=== PATIENT | male | born 1990 | race Caucasian/White ===

== ENCOUNTER → 2020-05-02 14:26 | Outpatient (BNVA) | payer SELFPAY | PROVIDERS: Visit Provider Physician Assistant Medical | DX: Z76.89 Persons encountering health services in other specified circumstances (principal) ==

== ENCOUNTER 2021-06-23 12:22 | Outpatient (REF) | payer OTHER, SELFPAY ==
[2021-06-23 13:16] LABS: COVID-19 Test Positive (Negative)
== END 2021-06-23 12:23 | disposition home or self-care (01) ==
LOC: HO.LAB 12:22
PROVIDERS: Visit Provider Internal Medicine
DX: Z20.822 Contact with and (suspected) exposure to COVID-19 (principal)
CPT/HCPCS: 36415; 87635; C9803

== ENCOUNTER 2021-08-20 12:00 | Outpatient (RCR) | payer OTHER, SELFPAY | END 2021-08-20 13:59 | disposition home or self-care (01) | LOC: HO.PT 12:00 | PROVIDERS: Visit Provider Physician Assistant | DX: Z98.890 Other specified postprocedural states (principal) | CPT/HCPCS: 97014; 97110; 97140; 97161; 97530 ==

== ENCOUNTER 2022-03-02 12:55 | Outpatient (RCR) | payer OTHER, SELFPAY ==
[2022-03-02 13:00] VITALS: BP 128/68; PULSE 73; O2SAT 97
== END 2022-04-07 14:43 | disposition home or self-care (01) ==
LOC: HO.PTWFD 12:55
PROVIDERS: Visit Provider Physician Assistant
DX: S16.1XXA Strain of muscle, fascia and tendon at neck level, initial encounter (principal)
CPT/HCPCS: 97110; 97162; 97535

== ENCOUNTER 2022-03-09 13:54 | Outpatient (REF) | payer OTHER, SELFPAY ==
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
== END 2022-03-09 13:55 | disposition home or self-care (01) ==
LOC: HO.HMGCX 13:54
PROVIDERS: Visit Provider Physician Assistant
DX: S81.812A Laceration without foreign body, left lower leg, initial encounter (principal)
CPT/HCPCS: 73590

== ENCOUNTER → 2022-04-24 07:56 | Outpatient (BNVA) | payer SELFPAY | PROVIDERS: Visit Provider Internal Medicine | DX: Z02.79 Encounter for issue of other medical certificate (principal) ==

== ENCOUNTER 2022-06-05 16:35 | Emergency (ER) | payer OTHER, SELFPAY ==
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
[2022-06-05 17:24] VITALS: BP 126/66; PULSE 95; RESP 18; TEMP 36.9; O2SAT 97; BMI 39.2
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
[2022-06-05 20:09] VITALS: BP 122/68; PULSE 62; RESP 12; TEMP 36.8; O2SAT 98
[2022-06-05] MEDS: Cyclobenzaprine HCl 5 MG TABLET PO (20:37)
--- NOTE | 2022-06-05 20:40 | PC.NURSE ---
patient a&ox3, pt medicated for pain, ambulated with steady gait and will discharge per order
== END 2022-06-05 20:41 | disposition home or self-care (01) ==
PROVIDERS: Emergency Provider Student in an Organized Health Care Education/Training Program
DX: R51.9 Headache, unspecified (principal); M54.2 Cervicalgia; M25.562 Pain in left knee; M25.561 Pain in right knee; Z79.899 Other long term (current) drug therapy
CPT/HCPCS: 70450; 72125; 73564; 99284

== ENCOUNTER 2022-07-17 04:25 | Emergency (ER) | payer OTHER, SELFPAY ==
[2022-07-17 04:57] VITALS: BP 134/91; PULSE 97; RESP 18; TEMP 36.7; O2SAT 97; BMI 38.7
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
[2022-07-17] MEDS: Ketorolac Tromethamine 15 MG/ML VIAL IM (08:54)
[2022-07-17] MEDS: Diphth,Pertus(ACell),Tet Adult 0.5 ML SYRINGE IM (08:56)
[2022-07-17 09:06] VITALS: BP 127/82; PULSE 93; RESP 16; TEMP 36.7; O2SAT 100
== END 2022-07-17 09:12 | disposition home or self-care (01) ==
PROVIDERS: Emergency Provider Student in an Organized Health Care Education/Training Program
DX: S60.511A Abrasion of right hand, initial encounter (principal); T23.201A Burn of second degree of right hand, unspecified site, initial encounter; T31.0 Burns involving less than 10% of body surface; T15.02XA Foreign body in cornea, left eye, initial encounter; X08.8XXA Exposure to other specified smoke, fire and flames, initial encounter; Y93.9 Activity, unspecified; Y92.9 Unspecified place or not applicable; Y99.9 Unspecified external cause status; Z79.899 Other long term (current) drug therapy
CPT/HCPCS: 16025; 90471; 90715; 96372; 99284; J1885

== ENCOUNTER 2022-08-19 08:30 | Outpatient (RCR) | payer OTHER, SELFPAY | END 2022-09-17 10:46 | disposition home or self-care (01) | LOC: HO.OT 08:30 | PROVIDERS: Visit Provider Surgery | DX: T23.001D Burn of unspecified degree of right hand, unspecified site, subsequent encounter (principal) | CPT/HCPCS: 97110; 97140; 97166 ==

== ENCOUNTER 2022-09-21 15:26 | Emergency (ER) | payer OTHER, SELFPAY ==
[2022-09-21 15:57] VITALS: BP 148/116; PULSE 93; RESP 18; TEMP 36.8; O2SAT 100; BMI 38.7
--- NOTE | 2022-09-21 15:58 | ED.EXTPRO ---
HPI - Extremity Problem General Chief complaint: Extremity Problem <RANDOLPH Robles - Last Filed: 09/21/22 16:03> Stated complaint: right knee surgery 09/18 sent from [facility] clot <RANDOLPH Robles - Last Filed: 09/21/22 16:03> Time Seen by Provider: 09/21/22 16:10 <RANDOLPH Robles - Last Filed: 09/21/22 16:03> Source: patient <Ryan Catalan MD - Last Filed: 09/21/22 17:51> Mode of arrival: ambulatory <Ryan Catalan MD - Last Filed: 09/21/22 17:51> Limitations: no limitations <Ryan Catalan MD - Last Filed: 09/21/22 17:51> History of Present Illness HPI Narrative: 32-year-old male with no major medical problems presents with right lower extremity pain. Patient had a recent ACL repair done a [facility]. He has had having increasing right lower extremity pain to the point it was so severe that he ran out of his pain medications. He followed up with his orthopedist ordered ultrasound was found to have a DVT. Again the pain is severe. His right knee. Pain radiates proximally and distally. There is no numbness or tingling. There has been no new injuries. He denies any chest pain or shortness of breath. He oxycodone did improve his pain however had to double up on the pain medications every 3 hours. He has had no fevers or chills. No other significant complaints at this time. <Ryan Catalan MD - Last Filed: 09/21/22 17:51> Related Data Home medications: Previous Rx's Medication Instructions Recorded cyclobenzaprine 5 mg tablet 5 mg PO TID PRN pain 7 days #21 06/05/22 tabs ketorolac 10 mg tablet 10 mg PO Q6H PRN pain 5 days #20 07/17/22 tabs apixaban 5 mg tablet (Eliquis) 10 mg PO BID 7 days #28 tabs 09/21/22 docusate sodium 100 mg capsule 100 mg PO BID #20 caps 09/21/22 (Colace) oxycodone 10 mg tablet 10 mg PO Q8H PRN pain #7 tabs 09/21/22 <RANDOLPH Robles - Last Filed: 09/21/22 16:03> Allergies/Adverse reactions: Allergies Allergy/AdvReac Type Severity Reaction Status Date / Time acetaminophen [From Tylenol] Allergy Rash Verified 07/17/22 08:28 From Vicodin AdvReac Mild HEAT Uncoded 03/09/22 13:45 FLASHES <RANDOLPH Robles - Last Filed: 09/21/22 16:03> Review of Systems Review of Systems: CONSTITUTIONAL: Denies weight loss, fever and chills. HEENT: Denies changes in vision and hearing. RESPIRATORY: Denies SOB and cough. CV: Denies palpitations no CP. GI: Denies abdominal pain, nausea, vomiting and diarrhea. : Denies dysuria and urinary frequency. MSK: Positive myalgia and joint pain. SKIN: Denies rash and pruritus. NEUROLOGICAL: Denies headache and syncope. PSYCHIATRIC: Denies recent changes in mood. Denies anxiety and depression. All other ROS are negative unless in HPI <Ryan Catalan MD - Last Filed: 09/21/22 17:51> [facility] Social History Social History: Social History Advance Directives: No Advance Directives Information Provided: Yes <RANDOLPH Robles - Last Filed: 09/21/22 16:03> Physical Exam Vital Signs: Vital Signs: Last Vital Signs Temp 98.2 F 09/21/22 15:57 Pulse 93 09/21/22 15:57 Resp 18 09/21/22 15:57 BP 148/116 H 09/21/22 15:57 Pulse Ox 100 09/21/22 15:57 BMI result Body Mass Index 38.7 <RANDOLPH Robles - Last Filed: 09/21/22 16:03> Vital Signs: Last Vital Signs Temp 98.2 F 09/21/22 15:57 Pulse 93 09/21/22 15:57 Resp 18 09/21/22 15:57 BP 148/116 H 09/21/22 15:57 Pulse Ox 100 09/21/22 15:57 BMI result Body Mass Index 38.7 <Ryan Catalan MD - Last Filed: 09/21/22 17:51> GEN: Well developed, no acute distress, alert, oriented HEENT: Normocephalic, atraumatic, normal external ears, nose appears normal, no oropharyngeal edema or exudates Eyes: Normal to appearance Neck: Supple, no lymphadenopathy Respiratory: Talks in complete sentences, no respiratory distress, clear to auscultation bilaterally Cardiovascular: Regular rate and rhythm, no murmurs rubs or gallops Abdomen: Soft, nontender, nondistended, no guarding, no rebound Back: No CVA tenderness Extremities: No clubbing cyanosis positive for right lower extremity edema Neurologic: No focal neurologic deficits, cranial nerves 2-12 intact, strength is 5/5 bilaterally, gait normal Skin: No rash <Ryan Catalan MD - Last Filed: 09/21/22 17:51> Course Course Course Narrative: RME - 32 y/o male presents to the ER for evaluation of severe RLE pain and recently found DVT s/p ACL reconstruction on 09/18 by [facility]. Arrives with disc from radiology in [facility], reports clots from the knee down. Reports extreme pain in the RLE and was told to double up his prescribed narcotics and is now out of them. No SOB or chest pain. Plan: labs and start on anticoagulation <RANDOLPH Robles - Last Filed: 09/21/22 16:03> Reevaluation(s) Reevaluation #1: Will review disc provided by radiologist. Will contact patient's orthopedist to approve anticoagulation. <Ryan Catalan MD - Last Filed: 09/21/22 17:51> Reevaluation #2: I spoke with Dr. Khoury's MA, aware of DVT, Recommends Eliquis and short follow up. <Ryan Catalan MD - Last Filed: 09/21/22 17:51> Reevaluation #3: Workup is complete. Patient started Eliquis. I discussed concerns about blood thinning medications and the risks of falling, head injury, bleeding. I discussed melanotic stools. Patient will be discharged at this time. Also, the patient showed me a rash on the tip of his penis. Patient reports that responded to antifungals in the past with steroid as well. This has been going on for at least a year. <Ryan Catalan MD - Last Filed: 09/21/22 17:51> Time: 17:46 <Ryan Catalan MD - Last Filed: 09/21/22 17:51> Medications Administered Discontinued Medications Generic Name Dose Route Start Last Admin Trade Name Freq PRN Reason Stop Dose Admin Apixaban 10 mg 09/21/22 16:39 09/21/22 16:57 Apixaban 5 Mg Tablet PO 09/21/22 16:40 10 mg ONCE ONE Administration Oxycodone HCl 10 mg 09/21/22 16:04 09/21/22 16:57 Oxycodone Hcl Immed Release 5 Mg Tablet PO 09/21/22 16:05 10 mg ONCE ONE Administration <RANDOLPH Robles - Last Filed: 09/21/22 16:03> Medications Administered Discontinued Medications Generic Name Dose Route Start Last Admin Trade Name Freq PRN Reason Stop Dose Admin Apixaban 10 mg 09/21/22 16:39 09/21/22 16:57 Apixaban 5 Mg Tablet PO 09/21/22 16:40 10 mg ONCE ONE Administration Oxycodone HCl 10 mg 09/21/22 16:04 09/21/22 16:57 Oxycodone Hcl Immed Release 5 Mg Tablet PO 09/21/22 16:05 10 mg ONCE ONE Administration <Ryan Catalan MD - Last Filed: 09/21/22 17:51> Medical Decision Making Medical Decision Making MDM Narrative: 32-year-old male presents with the a likely DVT. This was diagnosed by now patient radiology group. Attempting to obtain these images at this time. Assuming this is positive for DVT, will contact patient's orthopedist to confirm appropriateness for anticoagulation. Doubt patient needs to have IVC filter in place. The etiology of the DVT is most likely due to his recent surgery and immobilization. Doubt underlying blood diathesis at this time <Ryan Catalan MD - Last Filed: 09/21/22 17:51> Differential Diagnosis Differential Diagnoses: The differential diagnosis associated with the presentation includes (DVT, hypercoagulable state, vascular injury) <Ryan Catalan MD - Last Filed: 09/21/22 17:51> DVT <Ryan Catalan MD - Last Filed: 09/21/22 17:51> Admission/Observation Consideration of admission/observation: Escalation of care including admission/observation considered <Ryan Catalan MD - Last Filed: 09/21/22 17:51> Consult Healthcare Provider Management of the patient was discussed with: Diversional Therapist'S Assistant (Orthopedist) <Ryan Catalan MD - Last Filed: 09/21/22 17:51> Lab Data MDM Lab Attestation statement: I reviewed the patient's lab results. <Ryan Cataaln MD - Last Filed: 09/21/22 17:51> Result Diagrams: 09/21/22 16:52 09/21/22 16:52 <RANDOLPH Robles - Last Filed: 09/21/22 16:03> Labs: Lab Results 09/21/22 09/21/22 09/21/22 Range/Units 16:52 16:52 16:52 WBC 11.3 H (4.8-10.8) X10*3/uL RBC 5.30 (4.60-5.80) X10*6/uL Hgb 15.3 (14.0-18.0) g/dl Hct 46.3 (42.0-52.0) % MCV 87.4 (80.0-98.0) fL MCH 28.9 (27.0-33.0) pg MCHC 33.0 (31.0-36.0) g/dl RDW 12.5 (11.0-16.0) % Plt Count 277 (160-400) X10*3/uL MPV 9.9 (9.4-12.4) fL Immature Gran % (Auto) 0.5 H (0.0-0.4) % Neut % (Auto) 67.1 (45-73) % Lymph % (Auto) 23.0 (20-40) % Lamar % (Auto) 8.1 (2-11) % Eos % (Auto) 0.8 (0-4) % Baso % (Auto) 0.5 (0-2) % Lymph # (Auto) 2.6 (1.2-4.9) X10*3/uL Lamar # (Auto) 0.9 (0.1-1.2) X10*3/uL Eos # (Auto) 0.1 (0.0-0.4) X10*3/uL Baso # (Auto) 0.1 (0.0-0.2) X10*3/uL Abs Immat Gran (auto) 0.06 H (0.00-0.03) X10*3/uL Absolute Neuts (auto) 7.6 (2.0-8.3) x10*3/uL Absolute Nucleated RBC 0.000 (0.0-0.012) X10*3/uL Nucleated RBC % (auto) 0.0 (0.0-0.2) /100WBC PT 11.6 (10.0-13.1) SEC INR 1.0 (0.9-1.1) APTT 29.3 (26.0-36.4) SEC Sodium 139 (135-145) mmol/L Potassium 4.3 (3.3-5.1) mmol/L Chloride 102 (96-108) mmol/L Carbon Dioxide 28 (22-29) mmol/L Anion Gap 13 (12-20) BUN 12 (9-16) mg/dL Creatinine 1.16 (0.5-1.4) mg/dL Estim Creat Clear Calc 138.2 Estimated GFR > 60 Random Glucose 103 (60-115) mg/dL Calcium 9.9 (8.4-10.2) mg/dL Magnesium 2.1 (1.6-2.6) mg/dL Total Bilirubin 1.1 H (0.0-1.0) mg/dL Direct Bilirubin 0.3 (0.0-0.5) mg/dL AST 22 (5-37) U/L ALT 34 (0-40) U/L Alkaline Phosphatase 81 (39-117) U/L Total Protein 7.7 (6.5-8.0) g/dL Albumin 4.6 (3.5-5.0) g/dL <RANDOLPH Robles - Last Filed: 09/21/22 16:03> Lab Results 09/21/22 09/21/22 09/21/22 Range/Units 16:52 16:52 16:52 WBC 11.3 H (4.8-10.8) X10*3/uL RBC 5.30 (4.60-5.80) X10*6/uL Hgb 15.3 (14.0-18.0) g/dl Hct 46.3 (42.0-52.0) % MCV 87.4 (80.0-98.0) fL MCH 28.9 (27.0-33.0) pg MCHC 33.0 (31.0-36.0) g/dl RDW 12.5 (11.0-16.0) % Plt Count 277 (160-400) X10*3/uL MPV 9.9 (9.4-12.4) fL Immature Gran % (Auto) 0.5 H (0.0-0.4) % Neut % (Auto) 67.1 (45-73) % Lymph % (Auto) 23.0 (20-40) % Lamar % (Auto) 8.1 (2-11) % Eos % (Auto) 0.8 (0-4) % Baso % (Auto) 0.5 (0-2) % Lymph # (Auto) 2.6 (1.2-4.9) X10*3/uL Lamar # (Auto) 0.9 (0.1-1.2) X10*3/uL Eos # (Auto) 0.1 (0.0-0.4) X10*3/uL Baso # (Auto) 0.1 (0.0-0.2) X10*3/uL Abs Immat Gran (auto) 0.06 H (0.00-0.03) X10*3/uL Absolute Neuts (auto) 7.6 (2.0-8.3) x10*3/uL Absolute Nucleated RBC 0.000 (0.0-0.012) X10*3/uL Nucleated RBC % (auto) 0.0 (0.0-0.2) /100WBC PT 11.6 (10.0-13.1) SEC INR 1.0 (0.9-1.1) APTT 29.3 (26.0-36.4) SEC Sodium 139 (135-145) mmol/L Potassium 4.3 (3.3-5.1) mmol/L Chloride 102 (96-108) mmol/L Carbon Dioxide 28 (22-29) mmol/L Anion Gap 13 (12-20) BUN 12 (9-16) mg/dL Creatinine 1.16 (0.5-1.4) mg/dL Estim Creat Clear Calc 138.2 Estimated GFR > 60 Random Glucose 103 (60-115) mg/dL Calcium 9.9 (8.4-10.2) mg/dL Magnesium 2.1 (1.6-2.6) mg/dL Total Bilirubin 1.1 H (0.0-1.0) mg/dL Direct Bilirubin 0.3 (0.0-0.5) mg/dL AST 22 (5-37) U/L ALT 34 (0-40) U/L Alkaline Phosphatase 81 (39-117) U/L Total Protein 7.7 (6.5-8.0) g/dL Albumin 4.6 (3.5-5.0) g/dL <Ryan Catalan MD - Last Filed: 09/21/22 17:51> Independent Interpretation I performed an independent interpretation of an: Ultrasound (Reviewed independently the images on ultrasound showing noncompressibility the venous system of the right lower extremity consistent with DVT) <Ryan Catalan MD - Last Filed: 09/21/22 17:51> Radiology Impression Discussion of test interpretation with radiology: I have reviewed the radiologist's reading. (Ultrasound right lower extremity to rule out DVT:) <Ryan Catalan MD - Last Filed: 09/21/22 17:51> External Record Review External record reviewed: Prior outpatient radiology <Ryan Catalan MD - Last Filed: 09/21/22 17:51> Tests considered The following testing was considered but not selected: Laboratory analysis <Ryan Catalan MD - Last Filed: 09/21/22 17:51> Prescription Management I considered prescription management with: Pain Medication <Ryan Catalan MD - Last Filed: 09/21/22 17:51> Discharge Plan Discharge Clinical Impression: Deep vein thrombosis of lower extremity <RANDOLPH Robles - Last Filed: 09/21/22 16:03> Patient Disposition: Home, Self-Care <RANDOLPH Robles - Last Filed: 09/21/22 16:03> Instructions: Deep Vein Thrombosis (ED), Blood Thinners (ED) <RANDOLPH Robles - Last Filed: 09/21/22 16:03> Additional Instructions: You will be started on blood thinning medications for the blood clot in your right leg. When you on these medications, there is increased risk of bleeding from minor injuries. Should you have minor injury to the head, I would recommend following up in the emergency department for evaluation as she will be at significantly increased risk for intracranial bleeding. <RANDOLPH Robles - Last Filed: 09/21/22 16:03> Prescriptions: New Eliquis 5 mg tablet 10 mg PO BID 7 Days Qty: 28 0RF docusate sodium [Colace] 100 mg capsule 100 mg PO BID Qty: 20 0RF oxycodone 10 mg tablet 10 mg PO Q8H PRN (Reason: pain) Qty: 7 0RF Rx Instructions: Partial Fill upon patient request. No Action cyclobenzaprine 5 mg tablet 5 mg PO TID PRN (Reason: pain) 7 Days Qty: 21 0RF ketorolac 10 mg tablet 10 mg PO Q6H PRN (Reason: pain) 5 Days Qty: 20 0RF Rx Instructions: Patient received Toradol in the emergency room. <RANDOLPH Robles - Last Filed: 09/21/22 16:03> Referrals: Kyle Khoury MD [Physician] - 2 days <RANDOLPH Robles - Last Filed: 09/21/22 16:03>
[2022-09-21] MEDS: Apixaban 5 MG TABLET 10 MG PO (16:57)
[2022-09-21] MEDS: oxyCODONE HCl Immed Release 5 MG TABLET 10 MG PO (16:57)
[2022-09-21 16:59] LABS: MANUAL DIFF FLAG NO
[2022-09-21 17:06] LABS: Basophils Absolute Auto 0.1 X10*3/uL (0.0-0.2); Basophils Percent Auto 0.5 % (0-2); Eosinophils Absolute Auto 0.1 X10*3/uL (0.0-0.4); Eosinophils Percent Auto 0.8 % (0-4); Hematocrit 46.3 % (42.0-52.0); Hemoglobin 15.3 g/dl (14.0-18.0); Imm Gran Abs Auto 0.06 X10*3/uL (0.00-0.03); Imm Gran Pct Auto 0.5 % (0.0-0.4); Lymphocytes Absolute Auto 2.6 X10*3/uL (1.2-4.9); Mean Corpuscular Hemoglobin 28.9 pg (27.0-33.0); Mean Corpuscular Volume 87.4 fL (80.0-98.0); Mean Platelet Volume 9.9 fL (9.4-12.4); Monocytes Absolute Auto 0.9 X10*3/uL (0.1-1.2); Monocytes Percent Auto 8.1 % (2-11); Neutrophils Absolute Auto 7.6 x10*3/uL (2.0-8.3); Neutrophils Percent Auto 67.1 % (45-73); Platelet Count 277 X10*3/uL (160-400); Red Cell Distribution Width 12.5 % (11.0-16.0); White Blood Count 11.3 X10*3/uL (4.8-10.8)
[2022-09-21 17:27] LABS: Prothrombin Time 11.6 SEC (10.0-13.1)
[2022-09-21 17:29] LABS: Partial Thromboplastin Time 29.3 SEC (26.0-36.4)
[2022-09-21 17:34] LABS: Alanine Aminotransferase 34 U/L (0-40); Albumin Level 4.6 g/dL (3.5-5.0); Alkaline Phosphatase 81 U/L (39-117); Anion Gap 13 (12-20); Aspartate Amino Transferase 22 U/L (5-37); Bilirubin Direct 0.3 mg/dL (0.0-0.5); Bilirubin Total 1.1 mg/dL (0.0-1.0); Blood Urea Nitrogen 12 mg/dL (9-16); Calcium 9.9 mg/dL (8.4-10.2); Carbon Dioxide 28 mmol/L (22-29); Chloride 102 mmol/L (96-108); Creatinine Clr Calc Pharmacy 138.2; Estimated Glomerular Filt Rate > 60; Glucose Random 103 mg/dL (60-115); Magnesium 2.1 mg/dL (1.6-2.6); Potassium 4.3 mmol/L (3.3-5.1); Sodium 139 mmol/L (135-145); Total Protein 7.7 g/dL (6.5-8.0)
== END 2022-09-21 18:02 | disposition home or self-care (01) ==
PROVIDERS: Physician Assistant; Emergency Provider Emergency Medicine
DX: I82.401 Acute embolism and thrombosis of unspecified deep veins of right lower extremity (principal); M79.661 Pain in right lower leg; R60.0 Localized edema; Z79.899 Other long term (current) drug therapy
CPT/HCPCS: 36415; 80048; 80076; 83735; 85025; 85610; 85730; 99283

== ENCOUNTER 2022-11-25 10:00 | Outpatient (RCR) | payer OTHER, SELFPAY ==
[2022-10-01 09:07] VITALS: BP 122/80; PULSE 90; O2SAT 97
== END 2023-09-03 09:26 | disposition home or self-care (01) ==
LOC: HO.PTWFD 10:00
PROVIDERS: PCP Internal Medicine; Visit Provider Orthopaedic Surgery
DX: S80.911A Unspecified superficial injury of right knee, initial encounter (principal)
CPT/HCPCS: 97110; 97116; 97150; 97163; 97530; 97535

== ENCOUNTER 2023-01-04 14:34 | Outpatient (REF) | payer OTHER, SELFPAY ==
--- NOTE | ~2023-01-04 | US_ITS ---
EXAMINATION: US VENOUS ULTRASOUND WITH DOPPLER LOWER EXTREMITY, RIGHT CLINICAL INFORMATION: Pain. Rule out DVT. COMPARISON: None available. TECHNIQUE: Ultrasound of the deep veins is performed from the hip to the calf with compression sonography and color and pulse Doppler assessment. Spectral analysis with color-flow imaging is performed. FINDINGS: There is normal venous compression and respiratory variation and augmented flow. The visualized common femoral vein, superficial femoral vein, profunda femoral vein, popliteal vein, and the trifurcation region shows no evidence of deep venous thrombosis. There is a large complex Roberson's cyst measuring 7.4 x 1.5 x 4.6 cm. US/US venous duplex LE RT IMPRESSION: No DVT demonstrated in the right lower extremity. Large complex Roberson's cyst.
== END 2023-01-04 14:35 | disposition home or self-care (01) ==
LOC: HO.US 14:34
PROVIDERS: PCP Internal Medicine; Visit Provider Internal Medicine
DX: I82.401 Acute embolism and thrombosis of unspecified deep veins of right lower extremity (principal)
CPT/HCPCS: 93971

== ENCOUNTER 2023-10-08 08:00 | Outpatient (RCR) | payer OTHER, SELFPAY | END 2023-10-15 08:21 | disposition home or self-care (01) | LOC: HO.PT 08:00 | PROVIDERS: Visit Provider Orthopaedic Surgery | DX: M25.561 Pain in right knee (principal) | CPT/HCPCS: 97110; 97161; 97530 ==

== ENCOUNTER → 2024-04-11 07:21 | Outpatient (BNVA) | payer SELFPAY | PROVIDERS: Visit Provider Registered Nurse | DX: Z02.79 Encounter for issue of other medical certificate (principal) ==

== ENCOUNTER → 2025-05-04 10:46 | Outpatient (BNVA) | payer SELFPAY | PROVIDERS: PCP Internal Medicine | DX: Z02.89 Encounter for other administrative examinations (principal) ==